=== PATIENT | female | born 1965 | race Caucasian/White ===

== ENCOUNTER → 2016-11-21 | Outpatient (CLI) | payer BC, SELFPAY ==
[~2016-11-21] MED LIST: ASPIR 8181 MG PO; ETODOLAC300 MG PO; FORTEO 250250 MCG/ML INJ; GLUCOPHAGE1000 MG PO; HUMALOG100 UNIT/1 INJ; KLOR-CON20 MEQ PO; LASIX40 MG PO; LISINOPRIL20 MG PO; MONTELUKAST SOD10 MG PO; NITROSTAT0.4 MG SL; RANITIDINE HCL150 M1 PO; SYNTHROID125 MCG PO; TOUJEO INJ; VITAMIN D50000 UNIT PO; ZANTAC150 MG PO
== END ==
LOC: SLEEP 21:30
DX: G47.33 Obstructive sleep apnea (adult) (pediatric) (principal)
CPT/HCPCS: 95811

== ENCOUNTER → 2020-09-23 | Outpatient (CLI) | payer BC, OTHER ==
[~2020-09-23] MED LIST changes: +CYCLOBENZAPRINE5 MG PO; +IMODIUM CAP 2 MG2 MG PO; +MOBIC15 MG PO; +NORCO 7.5-3251 EACH PO; +ONDANSETRON ODT4 MG PO; +TOUJEO SQ
== END ==
LOC: EXRD 13:29
DX: M25.561 Pain in right knee (principal)
CPT/HCPCS: 73560

== ENCOUNTER → 2020-10-18 | Outpatient (CLI) | payer BC, OTHER ==
[2020-10-18 09:41] LABS: HEMOGLOBIN 13.8 gm/dl (12.3-15.3); RED BLOOD COUNT 4.78 M/UL (4.00-5.10)
[2020-10-18 10:07] LABS: BUN/CREATININE RATIO 25 (0-10)
[2020-10-19 12:08] LABS: C-PEPTIDE, SERUM 2.9 ng/mL (1.1-4.4)
== END ==
LOC: LAB 08:26
PROVIDERS: Family Medicine
DX: E11.9 Type 2 diabetes mellitus without complications (principal); E78.5 Hyperlipidemia, unspecified; I10 Essential (primary) hypertension; E03.9 Hypothyroidism, unspecified; E55.9 Vitamin D deficiency, unspecified
CPT/HCPCS: 36415; 80053; 80061; 82043; 84439; 84443; 84481; 84681; 85027; G0108

== ENCOUNTER → 2020-12-04 | Outpatient (CLI) | payer BC, OTHER | LOC: EXRD 10:20 | DX: M79.672 Pain in left foot (principal) | CPT/HCPCS: 73600; 73620 ==

== ENCOUNTER → 2020-12-05 | Outpatient (CLI) | payer BC, OTHER | LOC: CT 12-04 09:00 | DX: N28.89 Other specified disorders of kidney and ureter (principal) | CPT/HCPCS: 36415; 74170; 82565; Q9967 ==

== ENCOUNTER → 2020-12-27 | Outpatient (CLI) | payer BC, OTHER | LOC: LAB 10:34 | DX: N28.89 Other specified disorders of kidney and ureter (principal) | CPT/HCPCS: 81001 ==

== ENCOUNTER → 2021-02-11 | Outpatient (CLI) | payer BC | LOC: LAB 10:54 | DX: N28.89 Other specified disorders of kidney and ureter (principal) | CPT/HCPCS: 81001 ==

== ENCOUNTER → 2021-05-28 | Outpatient (CLI) | payer BC | LOC: EXRD 07:34 | DX: M54.2 Cervicalgia (principal); M25.512 Pain in left shoulder; M47.812 Spondylosis without myelopathy or radiculopathy, cervical region | CPT/HCPCS: 72050; 73030 ==

== ENCOUNTER → 2021-06-20 | Outpatient (CLI) | payer BC | LOC: DTC 13:16 | DX: E11.9 Type 2 diabetes mellitus without complications (principal); E66.01 Morbid (severe) obesity due to excess calories; Z71.3 Dietary counseling and surveillance | CPT/HCPCS: G0109 ==

== ENCOUNTER → 2021-06-27 | Outpatient (CLI) | payer BC ==
[2021-06-27 09:58] LABS: HEMOGLOBIN 13.5 gm/dl (12.3-15.3); RED BLOOD COUNT 4.48 M/UL (4.00-5.10); WHITE BLOOD COUNT 13.1 K/UL (4.5-11.0)
[2021-06-27 10:25] LABS: BUN/CREATININE RATIO 33 (0-10)
== END ==
LOC: LAB 07:50
PROVIDERS: Family Medicine
DX: E78.5 Hyperlipidemia, unspecified (principal); I10 Essential (primary) hypertension; E03.9 Hypothyroidism, unspecified; E55.9 Vitamin D deficiency, unspecified
CPT/HCPCS: 36415; 80053; 80061; 84439; 84443; 85027

== ENCOUNTER → 2021-09-12 | Outpatient (CLI) | payer BC | LOC: EXRD 08:06 | DX: R10.9 Unspecified abdominal pain (principal); Z87.442 Personal history of urinary calculi | CPT/HCPCS: 74018 ==

== ENCOUNTER → 2021-10-07 | Outpatient (CLI) | payer BC | LOC: KOH-I 08:59 | DX: R10.9 Unspecified abdominal pain (principal); N28.1 Cyst of kidney, acquired | CPT/HCPCS: 74176 ==

== ENCOUNTER → 2021-11-11 | Outpatient (CLI) | payer BC | LOC: EXRD 14:57 | DX: R05.9 Cough, unspecified (principal); R06.2 Wheezing; R09.89 Other specified symptoms and signs involving the circulatory and respiratory systems | CPT/HCPCS: 71046 ==

== ENCOUNTER → 2022-01-27 | Outpatient (CLI) | payer BC ==
[2022-01-27 07:18] LABS: HEMOGLOBIN 13.2 gm/dl (12.3-15.3); RED BLOOD COUNT 4.52 M/UL (4.00-5.10); WHITE BLOOD COUNT 12.6 K/UL (4.5-11.0)
[2022-01-27 07:38] LABS: BUN/CREATININE RATIO 28 (0-10)
[2022-01-28 10:14] LABS: CREATININE, URINE 158.9 mg/dL (Not Estab.)
== END ==
LOC: LAB 06:41
PROVIDERS: Nurse Practitioner Family
DX: I10 Essential (primary) hypertension (principal); E55.9 Vitamin D deficiency, unspecified; E11.9 Type 2 diabetes mellitus without complications
CPT/HCPCS: 36415; 80053; 80061; 82043; 82570; 84439; 84443; 85025

== ENCOUNTER → 2022-02-18 | Outpatient (CLI) | payer BC, SELFPAY | LOC: EXRD 08:00 | DX: R10.11 Right upper quadrant pain (principal) | CPT/HCPCS: 76705 ==

== ENCOUNTER 2022-03-13 10:03 | Emergency (ER) | payer BC | END 2022-03-13 13:00 | disposition home or self-care (01) | LOC: ER1 10:03 | DX: M25.561 Pain in right knee (principal); Z96.651 Presence of right artificial knee joint; E11.9 Type 2 diabetes mellitus without complications; Z90.49 Acquired absence of other specified parts of digestive tract; W19.XXXA Unspecified fall, initial encounter | CPT/HCPCS: 73564; 99283 ==